=== PATIENT | male | born 1950 | race Two or more races ===

== ENCOUNTER 2024-04-29 11:58 | Emergency (ER) | payer OTHER ==
[~2024-04-29] VITALS: Ht 165.1 cm; Wt 75.0 kg
[~2024-04-29 11:58] MED LIST: AMIODARONE HCL 50MG/ML 3ML VIAL IV ONE
[2024-04-29 12:00] VITALS: RESP 16
[2024-04-29 12:01] VITALS: O2SAT 100
[2024-04-29 12:22] LABS: BASOPHILS % 0.7 % (0.0-2.0); EOSINOPHILS % 0.3 % (0.0-5.0); HEMATOCRIT. 37.6 % (42.0-52.0); HEMOGLOBIN. 11.7 g/dL (14.0-18.0); LYMPHOCYTES % 38.3 % (20.0-50.0); MEAN CORPUSCULAR HEMOGLOBIN 27.2 pg (28.0-32.0); MEAN CORPUSCULAR VOLUME 87.7 fL (80.0-94.0); MEAN PLATELET VOLUME 8.7 fl (7.4-10.4); MONOCYTES % 2.2 % (2.0-8.0); NEUTROPHILS % 58.5 % (40.0-76.0); PLATELET 88 x1000/uL (130-400); RED BLOOD CELL COUNT 4.28 mill/uL (4.7-6.1); RED CELL DISTRIBUTION WIDTH 16.8 % (11.6-14.6); WHITE BLOOD COUNT 12.7 x1000/uL (4.5-11.0)
[2024-04-29 12:30] LABS: CHLORIDE 109 mEq/L (98-107); POTASSIUM 3.7 mEq/L (3.5-5.1); SODIUM 137 mEq/L (136-145)
[2024-04-29 12:31] LABS: CARBON DIOXIDE 22 mEq/L (21-32)
[2024-04-29 12:32] LABS: CALCIUM 8.5 mg/dL (8.7-10.4)
[2024-04-29 12:36] LABS: CREATININE 2.2 mg/dL (0.6-1.3); GLUCOSE 137 mg/dL (70-105)
[2024-04-29 12:37] LABS: UREA NITROGEN BLOOD 17 mg/dL (9-23)
[2024-04-29 12:42] LABS: TROPONIN I HIGH SENSITIVITY 437 ng/L (3.0-53)
[2024-04-29 13:00] VITALS: TEMP 37.00296
[2024-04-29] MEDS ORDERED: ASPIRIN 81MG EC TABLET PO ONE (13:00)
[2024-04-29] MEDS ORDERED: CLOPIDOGREL 75MG TABLET PO ONE (13:00)
[2024-04-29 13:13] VITALS: BP 166/90
[2024-04-29] MEDS: NOREPINEPHRINE 8MG/250ML PMX 250 ML IV ONE (13:13)
[2024-04-29] MEDS ORDERED: VASOPRESSIN 20 UNIT in SODIUM CHLORIDE 0.9% 99 ML IV STA (13:30)
[2024-04-29 13:31] VITALS: PULSE 123; RESP 16; O2SAT 100
[2024-04-29 13:35] VITALS: TEMP 95.1
[2024-04-29] MEDS ORDERED: LORAZEPAM 2MG/ML INJ ONE (13:35)
[2024-04-29 13:39] LABS: BG BASE EXCESS -13.7 mmol/L (-2.0-3.0); BG CARBOXYHEMOGLOBIN 0.2 % (0.5-1.5); BG DEOXYHEMOGLOBIN 3.1 % (0.0-5.0); BG HCO3 ACT 14.9 mmol/L (21.0-28.0); BG METHEMOGLOBIN 0.3 % (0.5-1.5); BG OXYGEN SATURATION 96.9 % (94.0-98.0); BG OXYHEMOGLOBIN 96.4 % (94.0-98.0); BG PCO2 46.4 mmHg (35.0-48.0); BG PH 7.125 (7.350-7.450); BG PO2 118.8 mmHg (83.0-108.0); BG SAMPLE SITE RIGHT RADIAL; BG TOTAL HEMOGLOBIN 10.4 g/dL (13.5-17.5); BG VENT MODE VENT - AC
[2024-04-29] MEDS ORDERED: VASOPRESSIN 20 UNIT in SODIUM CHLORIDE 0.9% 99 ML IV PRN (14:00)
== END 2024-04-29 15:38 ==
LOC: EDSEX 11:58 → EDBD 11:58 → ER 11:58 → EDAGE 11:58 → EDBEDREQ 14:01 → CANBEDREQ 14:40 → ER 15:38
DX: I46.9 Cardiac arrest, cause unspecified (principal); N18.6 End stage renal disease; Z99.2 Dependence on renal dialysis
CPT/HCPCS: 80048; 83880; 83735; 85025; 86850; 86900; 86901; 84484; 36415; 71045; 82805; 82375; 31500; 33010; 36556; 92950; 99291; 36600; J0282; J3490 ×4; J2060; 94003; J7050